=== PATIENT | male | born 1960 | race Caucasian/White ===

== ENCOUNTER 2016-09-09 09:49 | Emergency (ER) | payer BC, OTHER ==
[2016-09-09] MEDS ORDERED: Lidocaine/Prilocaine 2.5-2.5% Crm 5 GM Tube TOP ONE (10:01)
[2016-09-09 10:02] VITALS: BP 153/103
[2016-09-09] MEDS ORDERED: Lidocaine 2% with EPINEPHrine 1:100,000 20 ML MDV INJECT ONE (10:02)
[2016-09-09] MEDS ORDERED: Bacitracin/Neomycin/Polymyxin B Oint 0.9 GM U/D Packet TOP ONE (10:47)
--- NOTE | 2016-09-09 11:06 | EDM.PDOC ---
ED HPI GENERAL MEDICAL PROBLEM - General Chief Complaint: General Stated Complaint: wound bleeding Time Seen by Provider: 09/09/16 10:15 Source of Information: Reports: Patient History Limitations: Reports: No limitations - History of Present Illness INITIAL COMMENTS - FREE TEXT/NARRATIVE: The patient presents with complaint of bleeding status post resection of a skin tag under his right armpit. He had multiple skin tags resected yesterday at [facility]. He had bleeding from the 1 site overnight that soaked through multiple bandages and reinforcements. The other wounds had been cauterized and there is no bleeding. He denies other symptoms or complaints. Treatments [employer]: Reports: Other (see below) Other Treatments [employer]: pressure dressing applied by pt. at home righ axillary Pain Score (Numeric/FACES): 1 - Related Data Allergies Allergy/AdvReac Type Severity Reaction Status Date / Time No Known Allergies Allergy Verified 09/09/16 10:22 Home Meds: Home Meds . [No Known Home Meds] 09/09/16 [History] Past Medical History - Past Health History Medical/Surgical History: Denies Medical/Surgical History Social & Family History - Tobacco Use Smoking Status *Q: Current Every Day Smoker Years of Tobacco use: 36 Used Tobacco, but Quit: No Second Hand Smoke Exposure: No - Alcohol Use Days Per Week of Alcohol Use: 0 (No Previous DWI, etc.) Number of Drinks Per Day: 2 (About once per month usually beer or wine) Total Drinks Per Week: 0 - Recreational Drug Use Recreational Drug Use: No Drug Use in Last 12 Months: No - Living Situation & Occupation Living situation: Reports: (1984, 2 children), alone Occupation: employed ([employer]) ED ROS GENERAL - Review of Systems Review Of Systems: ROS reveals no pertinent complaints other than HPI. ED EXAM, GENERAL - Physical Exam Exam: See Below Exam Limited By: No limitations General Appearance: alert, WD/WN, no apparent distress Eye Exam: bilateral eye: EOMI, PERRL Ears: normal external exam, normal canal, hearing grossly normal, normal TMs Ear Exam: bilateral ear: auricle normal, canal normal, TM normal Nose: normal inspection, normal mucosa, no blood Throat/Mouth: Normal inspection, Normal lips, Normal teeth, Normal gums, Normal oropharynx, Normal voice, No airway compromise Head: atraumatic, normocephalic Neck: normal inspection, supple, non-tender, full range of motion Respiratory/Chest: no respiratory distress, lungs clear, normal breath sounds, no accessory muscle use, chest non-tender Cardiovascular: normal peripheral pulses, regular rate, rhythm, no edema, no gallop, no murmur, no rub GI/Abdominal: normal bowel sounds, soft, non tender, no organomegaly, no distention Back Exam: normal inspection, full range of motion. No: CVA tenderness (L), CVA tenderness (R), paraspinal tenderness, vertebral tenderness Extremities: normal inspection, normal range of motion, non-tender, no pedal edema, normal capillary refill Neurological: alert, oriented, CN II-XII intact, normal cognition, normal gait, normal reflexes, no motor/sensory deficits Psychiatric: normal affect, normal mood Skin Exam: Warm, Dry, Normal color, No rash, Other (Bleeding from resected skin tag steadily, wound clean and measures about 0.5 cm. Multiple other cauterized wounds s/p resection of multiple skin tags with no bleeding or signs/symptoms of infection. ) Course - Vital Signs Last Recorded V/S: Last Vital Signs Temp 36.3 C 09/09/16 09:54 Pulse 89 09/09/16 09:54 Resp 20 09/09/16 09:54 BP 153/103 H 09/09/16 09:54 Pulse Ox 100 09/09/16 09:54 - Orders/Labs/Meds Meds: Medications Discontinued Medications Generic Name Dose Route Start Last Admin Trade Name Freq PRN Reason Stop Dose Admin Lidocaine/Epinephrine 5 ml 09/09/16 10:02 09/09/16 10:46 Xylocaine 2% With Epinephrine 1:100,000 INJECT 09/09/16 10:03 5 ml ONETIME ONE Administration Lidocaine/Prilocaine 1 gm 09/09/16 10:01 09/09/16 10:12 Emla Crm TOP 09/09/16 10:02 1 applic ONETIME ONE Administration Neomycin/Polymyxin/Bacitracin 1 each 09/09/16 10:47 09/09/16 10:52 Triple Antibiotic Oint TOP 09/09/16 10:48 1 each ONETIME ONE Administration Departure - Departure Time of Disposition: 11:01 Disposition: Home, Self-Care 01 Clinical Impression: Bleeding from wound Instructions: Sutured Wound Care Referrals: Walter Arias PA [Primary Care Provider] - Forms: ED Department Discharge Additional Instructions: 1. Wound cleansed per nursing staff with Hibiclens and EMLA 2% cream applied and allowed to anesthetize skin. 2. Wound cleansed with Betadine and skin anesthestized with 2% lidocaine with 1: 100,000 epinephrine, 5 mL, injected with 30-gauge 1/2" needle. 3. Sutured wound with 5-0 Ethilon x 2 sutures with control of bleeding. 4. Nursing applied antibiotic ointment and sterile bandage. 5. Patient instructed to leave bandage dry and in place for 24 hours, then may remove and shower and clean with mild soap but do not soak until sutures removed. 6. OTC ibuprofen 400-800 mg every 6 hours as needed for discomfort. 7. Return to Clinic in 7-10 days for suture removal. 8. Followup with PCP if increased pain, redness, swelling, or drainage from sutured wound or other wounds. - Assessment/Plan Assessment:: Bleeding status post excision of skin tag, right armpit, 0.5 cm. Plan: 1. Wound cleansed per nursing staff and EMLA 2% cream applied and allowed to anesthetize skin. 2. Wound cleansed with Betadine and skin anesthestized with 2% lidocaine with 1: 100,000 epinephrine, 5 mL, injected with 30-gauge 1/2" needle. 3. Sutured wound with 5-0 Ethilon x 2 sutures with control of bleeding. 4. Nursing applied antibiotic ointment and sterile bandage. 5. Patient instructed to leave bandage dry and in place for 24 hours, then may remove and shower and clean with mild soap but do not soak until sutures removed. 6. OTC ibuprofen 400-800 mg every 6 hours as needed for discomfort. 7. Return to Clinic in 7-10 days for suture removal. 8. Followup with PCP if increased pain, redness, swelling, or drainage from sutured wound or other wounds.
== END 2016-09-09 11:20 | disposition home or self-care (01) ==
LOC: LL.ED 09:49
DX: L76.21 Postprocedural hemorrhage of skin and subcutaneous tissue following a dermatologic procedure (principal); F17.210 Nicotine dependence, cigarettes, uncomplicated
CPT/HCPCS: 99283; A9270; 12001